=== PATIENT | female | born 1990 | race Caucasian/White ===

== ENCOUNTER 2017-07-28 22:53 | Emergency (ER) | payer OTHER ==
[~2017-07-28] VITALS: Ht 165.1 cm; Wt 56.2 kg
[2017-07-28] MEDS ORDERED: IBUPROFEN 600 MG TAB PO STA (23:29)
[2017-07-28] MEDS ORDERED: CYCLOBENZAPRINE HCL 10 MG TAB PO ONE (23:30)
[2017-07-28 23:49] VITALS: BP 136/71
== END 2017-07-29 00:03 | disposition home or self-care (01) ==
LOC: FSED 22:53
DX: M54.5 Low back pain (principal); M62.830 Muscle spasm of back; R03.0 Elevated blood-pressure reading, without diagnosis of hypertension
CPT/HCPCS: 99283